=== PATIENT | female | born 1975 | race Caucasian/White ===

== ENCOUNTER → 2019-08-04 | Outpatient (CLI) | payer OTHER, SELFPAY ==
--- NOTE | 2019-08-04 12:58 | REP ---
Chest x-ray: Two views. History: Fever. . Comparison study: No comparison study . Findings: The lungs are well inflated and free of infiltrate. The pleural angles are sharp. The heart size is normal. Pulmonary vasculature is not increased. No significant bony abnormality is seen. Impression: Negative chest x-ray. Electronically Signed by Milton Eagle MD 08/04/2019 12:50 P
== END ==
LOC: M LRY 12:29
PROVIDERS: ATTEND Physician Assistant
DX: R50.9 Fever, unspecified (principal); R05 Cough

== ENCOUNTER → 2022-11-06 | Outpatient (CLI) | payer OTHER ==
[~2022-11-06] MED LIST: E-Z-GAS II EFFERVESCENT PACKET (SODIUM BICARB./CITRIC ACID/SIMETHICONE) As Ordered ONE; E-Z-HD 98% w/w 340GM SUSP BTL As Ordered ONE; E-Z-PAQUE 96% w/w SUSP 176GM BTL As Ordered ONE
== END ==
LOC: M RAD 08:51
PROVIDERS: ATTEND Physician Assistant
DX: K21.9 Gastro-esophageal reflux disease without esophagitis (principal)

== ENCOUNTER → 2022-11-13 | Outpatient (REF) | payer OTHER | LOC: M SFHCWAGY 17:21 | PROVIDERS: ATTEND Obstetrics & Gynecology | DX: Z12.4 Encounter for screening for malignant neoplasm of cervix (principal) ==

== ENCOUNTER → 2025-02-25 | Outpatient (REF) | LOC: M CAHLAB 13:33 | PROVIDERS: ATTEND Emergency Medicine | DX: Z01.89 Encounter for other specified special examinations (principal) ==

== ENCOUNTER 2025-03-28 14:45 | Emergency (ER) | payer MEDICAID, OTHER, SELFPAY ==
[~2025-03-28] VITALS: Ht 175.3 cm; Wt 134.1 kg
[2025-03-28 19:20] VITALS: TEMP 97.2; O2SAT 98
[2025-03-28] MEDS: KETOROLAC 30 MG/ML 1 ML VIAL IM ONE (19:52)
[2025-03-28 20:15] VITALS: BP 148/92
== END 2025-03-28 20:26 | disposition home or self-care (01) ==
LOC: M ED 14:45
DX: S93.402A Sprain of unspecified ligament of left ankle, initial encounter (principal); X50.1XXA Overexertion from prolonged static or awkward postures, initial encounter; Y92.89 Other specified places as the place of occurrence of the external cause; Y93.9 Activity, unspecified; Y99.9 Unspecified external cause status; M77.32 Calcaneal spur, left foot
CPT/HCPCS: 73590; 73610; 73620; 96372; 99284; J1885